=== PATIENT | male | born 1960 | race Caucasian/White ===

== ENCOUNTER → 2016-12-13 | Outpatient (CLI) | payer BC ==
[~2016-12-13] MED LIST: ACET325T96 PO; AMR2 PO; DOCU-94 PO; DXM/4 PO; GLC/500 PO; GLC500 PO; INSU100I SC; LANS30CA12 PO; LEVE250T PO; METO25TA3 PO; MULT-506 PO; ONDA8TAB6 PO; OPTIRAY 320 IV PRN; TEMO1CAP4 PO; TRIA3AER NAE; bactrim PO
--- NOTE | 2016-12-13 10:52 | DIAGNOSTIC IMAGING REPORT ---
CT OF THE CHEST WITH IV CONTRAST CLINICAL HISTORY: Lymphoma. Weight loss. History of glioblastoma multiforme. COMPARISON STUDY: CT of the chest abdomen pelvis March 24, 2016. TECHNIQUE: Following IV administration of 100 mL of Optiray-320, helical axial images of the chest were obtained. Images were viewed in the axial, sagittal and coronal planes. IV contrast was administered without complication. FINDINGS: No enlarged axillary, mediastinal or hilar lymph nodes are present. The heart is mildly enlarged. There is no pericardial effusion. The central airways are patent. No consolidation is identified. Linear opacities are suggestive of atelectasis. No pneumothorax or pleural effusion is present. There are no suspicious lesions within the bony thorax. The abdomen and pelvis will be reported separately. There are gallstones within the gallbladder. The size of the spleen is normal. IMPRESSION: 1. No thoracic lymphadenopathy. 2. No acute intrathoracic findings. 3. Linear and groundglass opacities within the lungs which suggest atelectasis. Electronically signed by: Fabrizio Tam M.D. 12/13/2016 10:50 AM Dictated Date/Time: 12/13/2016 10:43 AM
--- NOTE | 2016-12-13 12:07 | DIAGNOSTIC IMAGING REPORT ---
CT ABD/PELVIS IV AND ORAL CONT CLINICAL HISTORY: Weight loss, history of lymphoma. COMPARISON STUDY: Outside CT scan dated 03/24/2016 TECHNIQUE: Following the IV administration of 100 mL of Optiray-320, CT scan of the abdomen and pelvis was performed from the lung bases to the proximal femurs. Images are reviewed in the axial, sagittal, and coronal planes. IV contrast was administered without complication. CT DOSE: 1039.13 mGy.cm FINDINGS: Lower chest: There is mild bibasilar atelectasis. Liver: The contrast-enhanced liver is normal in size, contour, and attenuation. There is no intrahepatic biliary ductal dilatation. The hepatic veins and portal veins are patent. Gallbladder: Cholelithiasis. Spleen: Normal in size and attenuation. Pancreas: Unremarkable. Adrenal glands: Unremarkable. Kidneys: There is symmetric renal cortical enhancement. The kidneys are normal in size without hydronephrosis. Bowel: There are no transition zones indicate bowel obstruction. There is moderate fecal retention. There is no evidence of acute diverticulitis. There are no findings to indicate acute appendicitis. Peritoneum: There is no intraperitoneal free air or abdominal ascites. There are small fat-containing inguinal hernias. Vasculature: The abdominal aorta is normal in course and caliber. Adenopathy: None. Pelvic viscera: There is mild prostamegaly. Skeletal structures: No destructive osseous lesions are seen. IMPRESSION: 1. Cholelithiasis 2. Moderate fecal retention 3. No evidence of pathologic adenopathy 4. No acute inflammatory changes 5. Small fat-containing inguinal hernias 6. Prostamegaly Electronically signed by: Constantino Ramos M.D. 12/13/2016 12:05 PM Dictated Date/Time: 12/13/2016 12:00 PM
== END | disposition home or self-care (01) ==
LOC: C.CTS 09:33
PROVIDERS: ATTEND Neurological Surgery
DX: C71.9 Malignant neoplasm of brain, unspecified (principal); R56.9 Unspecified convulsions; E11.9 Type 2 diabetes mellitus without complications; R63.4 Abnormal weight loss; K80.20 Calculus of gallbladder without cholecystitis without obstruction; K59.00 Constipation, unspecified; N40.0 Benign prostatic hyperplasia without lower urinary tract symptoms; Z51.11 Encounter for antineoplastic chemotherapy; Z85.79 Personal history of other malignant neoplasms of lymphoid, hematopoietic and related tissues

== ENCOUNTER → 2017-02-04 | Outpatient (CLI) | payer BC ==
[~2017-02-04] MED LIST changes: -OPTIRAY 320 IV PRN
[2017-02-04 14:04] LABS: HEMATOCRIT 25.2 % (42-52); MEAN CELL VOLUME 98.4 fL (80-100); MEAN CORPUSCULAR HEMOGLOBIN 33.6 pg (25-34); MEAN CORPUSCULAR HGB CONC 34.1 g/dl (32-36); RED BLOOD COUNT 2.56 M/uL (4.7-6.1); WHITE BLOOD COUNT 3.39 K/uL (4.8-10.8)
[2017-02-04 14:40] LABS: PLATELET COUNT 85 K/uL (130-400)
[2017-02-04 14:43] LABS: BASO % 0.3 %; BASO ABS # 0.01 K/uL (0-0.2); COMPLETE YES; EOS % 0.3 %; IG% 4.1 %; LYMPH % 36.6 %; LYMPH ABS # 1.24 K/uL (1.2-3.4); MEAN PLATELET VOLUME 9.2 fL (7.4-10.4); MONO % 9.7 %
== END | disposition home or self-care (01) ==
LOC: C.LABSPEC 13:14
PROVIDERS: ATTEND Neurological Surgery
DX: C71.9 Malignant neoplasm of brain, unspecified (principal); Z51.11 Encounter for antineoplastic chemotherapy